=== PATIENT | male | born 2000 | race Caucasian/White ===

== ENCOUNTER 2020-12-16 01:03 | Emergency (ER) | payer OTHER ==
[~2020-12-16] VITALS: Ht 167.6 cm; Wt 63.5 kg
[2020-12-16 01:04] VITALS: BP 127/63
--- NOTE | 2020-12-16 01:07 | NUR ---
PT AMBULATED TO [facility].
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
--- NOTE | 2020-12-16 01:42 | NUR ---
PATIENT BIB [employer]. PATIENT EXAMINED BY DR. VARGAS. PATIENT MEDICALLY CLEARED AND RELEASED IN CUSTODY IN STABLE CONDITION. ORIGINAL PRE-BOOK FORM GIVEN TO OFFICER [facility] #[id number].
[2020-12-16 01:43] VITALS: BP 127/63
== END 2020-12-16 01:43 ==
LOC: MED 01:03
DX: J45.909 Unspecified asthma, uncomplicated (principal); Z02.89 Encounter for other administrative examinations; V98.8XXA Other specified transport accidents, initial encounter; Y93.89 Activity, other specified; Y92.29 Other specified public building as the place of occurrence of the external cause; Y99.8 Other external cause status
CPT/HCPCS: 99283